=== PATIENT | male | born 1955 | race Caucasian/White ===

== ENCOUNTER 2021-08-04 03:51 | Inpatient (IN) ==
[2021-08-04] MEDS ORDERED: *HR* Heparin 5,000 UNIT/ML VIAL IVP ONE (04:16)
[2021-08-04] MEDS ORDERED: *HR* Heparin 5,000 UNIT/ML VIAL IVP PRN ×2 (04:16)
[2021-08-04] MEDS ORDERED: *HR* FentaNYL (PF) 100 MCG/2 ML VIAL IVP ONE (04:25)
[2021-08-04] MEDS ORDERED: Heparin 25,000UNIT/250ML 1/2NS 25,000 UNIT/250 ML IV.SOLN IVC SCH (04:30)
[2021-08-04 04:47] LABS: Basophils # 0.1 K/mcL (0.0-0.2); Basophils % 0.9 %; Eosinophils # 0.5 K/mcL (0.0-0.6); Eosinophils % 3.2 %; Hematocrit 45.5 % (37.5-50.1); Hemoglobin 14.8 g/dL (12.9-16.9); Immature Granulocytes % 0.9 % (0-4); Lymphocytes # 3.7 K/mcL (0.6-4.6); Lymphocytes % 26.9 %; Mean Corpuscular HGB Conc 32.5 g/dL (31.6-35.5); Mean Corpuscular Hemoglobin 29.8 pg (28.0-33.3); Mean Corpuscular Volume 91.5 fL (83.0-100.0); Mean Platelet Volume 10.9 fL (9.4-12.4); Monocytes # 1.4 K/mcL (0.0-1.3); Monocytes % 10.2 %; Neutrophils # 8.1 K/mcL (1.6-8.9); Platelet Count 225 K/mcL (140-400); Red Blood Count 4.97 M/mcL (4.19-5.50); Red Cell Distribution Width 14.3 % (11.5-14.5); Segmented Neutrophils % 57.9 %; White Blood Count 13.9 K/mcL (4.3-11.1)
[2021-08-04 04:55] LABS: Heparin anti-factor XA UFH < 0.04 IU/mL (0.30-0.70)
[2021-08-04 04:56] LABS: INR 1.1; Prothrombin Time 11.8 Seconds (9.4-12.1)
[2021-08-04 04:57] LABS: Activated Partial Thrombo Time 32.1 Seconds (26.0-36.0)
[2021-08-04 05:06] LABS: BUN/Creatinine Ratio 18 (6-26); Blood Urea Nitrogen 17 mg/dL (8-23); Calcium 9.5 mg/dL (8.6-10.3); Carbon Dioxide 27 mEq/L (23-29); Chloride 104 mEq/L (98-107); Glucose 201 mg/dL (70-105); Osmolality,Calculated 297 (280-300); Potassium 3.5 mEq/L (3.5-5.1); Sodium 140 mEq/L (136-145); eGFR For African Americans > 60 (> 60); eGFR For Non-African Americans > 60 (> 60)
[2021-08-04 05:11] LABS: Troponin I 0.05 ng/mL (< 0.04)
[2021-08-04] MEDS ORDERED: *HR* HYDROmorphone (PF) 1 MG/ML SYRINGE IVP ONE (05:15)
[2021-08-04] MEDS ORDERED: Perflutren Lipid Microsphere 1.3 ML in 0.9 % Sodium Chloride 8.7 ML IVP PRN (06:20)
[2021-08-04] MEDS ORDERED: Acetaminophen 325 MG TABLET PO PRN (06:22)
[2021-08-04] MEDS ORDERED: Naloxone 0.4 MG/ML INJ IVP PRN (06:22)
[2021-08-04] MEDS ORDERED: D5% in Water 1,000 ML IVC PRN (06:25)
[2021-08-04] MEDS ORDERED: *HR* Dextrose 50 % in Water (Syg) 50 ML SYRINGE IVP PRN (06:25)
[2021-08-04] MEDS ORDERED: Dextrose Gel 15 GM/37.5 ML TUBE PO PRN ×2 (06:25)
[2021-08-04] MEDS ORDERED: 0.9 % Sodium Chloride 1,000 ML IVC SCH (06:30)
[2021-08-04] MEDS ORDERED: *HR* Metoprolol 5 MG/5 ML VIAL IVP PRN (06:36)
[2021-08-04] MEDS ORDERED: Morphine Sulfate 2 MG/ML SYRINGE IVP PRN (06:44)
[2021-08-04] MEDS: Aspirin 81 MG TAB.CHEW PO SCH (07:59)
[2021-08-04 09:47] LABS: Influenza A PCR Negative (Negative); Influenza B PCR Negative (Negative); Resp. Syncytial Virus PCR Negative (Negative)
[2021-08-04 10:05] LABS: SARS-CoV-2 by PCR (In House) Negative (Negative)
[2021-08-04] MEDS: MethylPREDNISolone 40 MG/ML VIAL IVP SCH ×2 (10:50→17:51)
[2021-08-04] MEDS: Metoprolol XL (24 HR) Succ 50 MG TAB.ER.24H PO SCH (10:50)
[2021-08-04] MEDS: Insulin LISPRO 300 UNITS/3 ML VIAL SUBQ SCH ×3 (11:09→22:42)
[2021-08-04] MEDS ORDERED: *HR* Heparin 10,000 UNIT/10 ML VIAL ONE (11:24)
[2021-08-04] MEDS ORDERED: 0.9 % Sodium Chloride 2,000 ML ONE (11:24)
[2021-08-04] MEDS ORDERED: Nitroglycerin 1,000 MCG/5 ML VIAL IV ONE (11:24)
[2021-08-04] MEDS ORDERED: ISOVUE-370 200 ML INFUS..BTL ONE ×3 (11:24→13:13)
[2021-08-04] MEDS ORDERED: Heparin 1,000 UNITS/500 mL 500 ML ONE ×2 (11:24→12:47)
[2021-08-04] MEDS ORDERED: Tirofiban 12.5 MG/250ML 12.5 MG/250 ML BAG IVC SCH ×2 (11:30→14:15)
[2021-08-04] MEDS: Ipratropium/Albuterol Neb 3 ML IH SCH ×5 (11:34→23:31)
[2021-08-04] MEDS: Budesonide/Formoterol 160/4.5 1 PUFF INH IH SCH ×2 (11:34→20:00)
[2021-08-04] MEDS ORDERED: *HR* FentaNYL (PF) 100 MCG/2 ML VIAL ONE ×4 (11:41→16:09)
[2021-08-04] MEDS ORDERED: *HR* Midazolam HCl 2 MG/2 ML VIAL ONE ×2 (11:42→12:47)
[2021-08-04] MEDS ORDERED: Tirofiban 12.5 MG/250ML 12.5 MG/250 ML BAG ONE (12:17)
[2021-08-04] MEDS ORDERED: *HR* Labetalol 100 MG/20 ML MDV ONE ×2 (13:00→15:40)
[2021-08-04] MEDS ORDERED: *HR* Ticagrelor 90 MG TABLET ONE (13:41)
[2021-08-04] MEDS ORDERED: Nitroglycerin 0.4 MG PATCH.TD24 TD ONE (16:15)
[2021-08-04] MEDS ORDERED: Nitroglycerin Spray 4.9 GM BOTTLE ONE (16:20)
[2021-08-04] MEDS: Ondansetron 4 MG/2 ML VIAL IVP PRN (18:35)
[2021-08-04] MEDS ORDERED: *HR* Ticagrelor 90 MG TABLET PO SCH (21:00)
[2021-08-04] MEDS: *HR* Ticagrelor 90 MG TABLET PO SCH (21:20)
[2021-08-05] MEDS: Ipratropium/Albuterol Neb 3 ML IH SCH ×6 (03:46→23:17)
[2021-08-05 05:07] LABS: Hemoglobin 13.4 g/dL (12.9-16.9); Platelet Count 259 K/mcL (140-400)
[2021-08-05 05:08] LABS: Hematocrit 40.4 % (37.5-50.1); Mean Corpuscular HGB Conc 33.2 g/dL (31.6-35.5); Mean Corpuscular Hemoglobin 29.8 pg (28.0-33.3); Mean Platelet Volume 11.4 fL (9.4-12.4); Red Blood Count 4.49 M/mcL (4.19-5.50); Red Cell Distribution Width 14.3 % (11.5-14.5); White Blood Count 28.7 K/mcL (4.3-11.1)
[2021-08-05 05:25] LABS: Chol/HDL Ratio 3.8 (0-4.9)
[2021-08-05 05:29] LABS: BUN/Creatinine Ratio 16 (6-26); Blood Urea Nitrogen 15 mg/dL (8-23); Calcium 9.2 mg/dL (8.6-10.3); Carbon Dioxide 25 mEq/L (23-29); Chloride 102 mEq/L (98-107); Glucose 208 mg/dL (70-105); Magnesium 1.7 mg/dL (1.6-2.6); Osmolality,Calculated 287 (280-300); Phosphorous 1.6 mg/dL (2.7-4.5); Potassium 3.9 mEq/L (3.5-5.1); Sodium 135 mEq/L (136-145); eGFR For African Americans > 60 (> 60); eGFR For Non-African Americans > 60 (> 60)
[2021-08-05] MEDS: MethylPREDNISolone 40 MG/ML VIAL IVP SCH ×2 (05:35→16:36)
[2021-08-05] MEDS: Budesonide/Formoterol 160/4.5 1 PUFF INH IH SCH ×2 (07:29→20:28)
[2021-08-05] MEDS: lisinopriL 20 MG TABLET PO SCH (08:36)
[2021-08-05] MEDS: Insulin LISPRO 300 UNITS/3 ML VIAL SUBQ SCH ×4 (08:36→21:34)
[2021-08-05] MEDS: *HR* Ticagrelor 90 MG TABLET PO SCH ×2 (08:36→21:32)
[2021-08-05] MEDS: Aspirin 81 MG TAB.CHEW PO SCH (08:36)
[2021-08-05] MEDS: Metoprolol XL (24 HR) Succ 50 MG TAB.ER.24H PO SCH (08:37)
[2021-08-05] MEDS ORDERED: Furosemide 40 MG/4 ML VIAL IVP ONE (09:12)
[2021-08-05] MEDS: Isosorbide MONOnitrate (24 HR) 30 MG TAB.ER.24H PO SCH (09:24)
[2021-08-05 10:14] LABS: VBG HCO3 25 mEq/L (21-27); VBG PCO2 38 mmHg (41-51); VBG PH 7.42 pH Units (7.32-7.42); VBG PO2 146 mmHg (25-50)
[2021-08-05] MEDS: *HR* Enoxaparin 40 MG/0.4 ML SYRINGE SQ SCH (12:06)
[2021-08-05] MEDS: Nicotine 7 MG PATCH.TD24 TD SCH (13:27)
[2021-08-05] MEDS: Ondansetron 4 MG/2 ML VIAL IVP PRN (16:35)
[2021-08-05] MEDS ORDERED: Ringers Solution, Lactated 1,000 ML IVC SCH (17:00)
[2021-08-05] MEDS ORDERED: Furosemide 20 MG TABLET PO SCH (17:00)
[2021-08-06] MEDS: Ipratropium/Albuterol Neb 3 ML IH SCH ×3 (04:04→11:36)
[2021-08-06] MEDS: *HR* Enoxaparin 40 MG/0.4 ML SYRINGE SQ SCH (05:13)
[2021-08-06 07:26] LABS: Platelet Count 253 K/mcL (140-400)
[2021-08-06 07:27] LABS: Hematocrit 42.7 % (37.5-50.1); Hemoglobin 14.1 g/dL (12.9-16.9); Mean Corpuscular Hemoglobin 30.2 pg (28.0-33.3); Mean Corpuscular Volume 91.4 fL (83.0-100.0); Mean Platelet Volume 11.2 fL (9.4-12.4); Red Blood Count 4.67 M/mcL (4.19-5.50)
[2021-08-06 07:35] LABS: BUN/Creatinine Ratio 23 (6-26); Blood Urea Nitrogen 22 mg/dL (8-23); Calcium 9.4 mg/dL (8.6-10.3); Carbon Dioxide 30 mEq/L (23-29); Chloride 102 mEq/L (98-107); Glucose 141 mg/dL (70-105); Magnesium 2.1 mg/dL (1.6-2.6); Osmolality,Calculated 294 (280-300); Phosphorous 3.1 mg/dL (2.7-4.5); Potassium 3.7 mEq/L (3.5-5.1); Sodium 139 mEq/L (136-145); eGFR For African Americans > 60 (> 60); eGFR For Non-African Americans > 60 (> 60)
[2021-08-06] MEDS: Insulin LISPRO 300 UNITS/3 ML VIAL SUBQ SCH (07:44)
[2021-08-06 08:02] VITALS: BP 129/86; PULSE 98; TEMP 97.8
[2021-08-06] MEDS: Budesonide/Formoterol 160/4.5 1 PUFF INH IH SCH (08:13)
[2021-08-06] MEDS: Isosorbide MONOnitrate (24 HR) 30 MG TAB.ER.24H PO SCH (08:30)
[2021-08-06] MEDS: Metoprolol XL (24 HR) Succ 50 MG TAB.ER.24H PO SCH (08:31)
[2021-08-06] MEDS: *HR* Ticagrelor 90 MG TABLET PO SCH (08:31)
[2021-08-06] MEDS: lisinopriL 20 MG TABLET PO SCH (08:31)
[2021-08-06] MEDS: Nicotine 7 MG PATCH.TD24 TD SCH (08:31)
[2021-08-06] MEDS: Aspirin 81 MG TAB.CHEW PO SCH (08:31)
[2021-08-06 08:50] LABS: Estimated Average Glucose 171 mg/dl; Hemoglobin A1C 7.6 %
[2021-08-06] MEDS ORDERED: predniSONE 20 MG TABLET PO SCH (09:00)
[2021-08-06 11:41] VITALS: O2SAT 92
== END 2021-08-06 12:36 | disposition home or self-care (01) | DRG 246 ==
LOC: 2ANU 03:51 → EMEROOARM 03:51 → SUATTDRO 05:46 → 2ANU 06:25 → SUATTDRO 08-05 14:53
PROVIDERS: ADMIT Student in an Organized Health Care Education/Training Program; ATTEND Internal Medicine